=== PATIENT | female | born 1995 | race Caucasian/White ===

== ENCOUNTER 2017-07-28 11:50 | Emergency (ER) | payer BC, MEDICAID ==
[~2017-07-28] VITALS: Ht 167.6 cm; Wt 94.7 kg
[~2017-07-28 11:50] MED LIST: ALBU6.7H INH; AZIT250T74; FLUTI110I INH; GLUMETZA; IBUP800T23 PO; LEVO88TA21 PO; LEVORA; SYNT88TA PO; nebulizer machine
[2017-07-28 11:52] VITALS: BP 133/61; PULSE 110; RESP 18; TEMP 98.7; O2SAT 100
[2017-07-28] MEDS ORDERED: AMOX875T PO (12:36)
--- NOTE | 2017-07-28 12:42 | PD ---
HPI Chief Complaint: ENT Complaint Time Seen by Provider: 11:58 Travel History International Travel<30 days: No Contact w/Intl Traveler<30days: No Traveled to known affect area: No History of Present Illness HPI Patient comes to the emergency department complaining of cold and flulike symptoms ongoing for 2 weeks. Patient complaining of dry nonproductive cough, sore throat, and developing left ear pain that started yesterday. Patient describes pain as a sharp stabbing pain that radiates from her ear to her throat. Pain is worse with swallowing. Patient denies anything making symptoms better. Denies , nausea, vomiting, abdominal pain, headache, chest pain, or shortness of breath. Patient denies any known drug allergies even though her chart says acetaminophen listed. Patient reports she has not needed an inhaler for asthma long time she only gets when she exercises. PFSH Past Medical History ADHD: Yes Asthma: Yes Bipolar Disorder: Yes Diminished Hearing: No Gastrointestinal Disorders: Yes (CONSTIPATION) Genitourinary: Yes (ISSUES WITH BLADDER EMPTYING PER MOM) Psychiatric: Yes (ODD) Respiratory: Yes (ASTHMA) Immunizations Current: Yes Migraines: Yes Thyroid Disease: Yes ?: Not LMP: YESTERDAY : 1 Para: 0 Miscarriage: 0 : 0 Social History Alcohol Use: No Tobacco Use: No Substance Use: No Allergies-Medications (Allergen,Severity, Reaction): Coded Allergies: acetaminophen (Unverified Allergy, Unknown, Patient denies, 07/28/17) Reported Meds & Prescriptions Reported Meds & Active Scripts Active Amoxicillin 875 Mg Tab 875 Mg PO BID 10 Days Ibuprofen 800 Mg Tab 800 Mg PO TID [levora] 120 Days One tab po daily x 3 weeks, then discard last 7 pills and start new pack Repeat x 3 packs then on fourth pack finish all pills Proventil Hfa (Albuterol Sulfate) 6.7 Gm Aero 2 Puff INH Q4HPRN * SHAKE WELL BEFORE USE * [nebulizer machine] Synthroid (Levothyroxine Sodium) 88 Mcg Tab 88 Mcg PO DAILY Reported Proventil Hfa (Albuterol Sulfate) 6.7 Gm Aero 0 INH UNKNOWN DOSE Zithromax (Azithromycin) 250 Mg Tab 250 Mg UNKNOWN DOSE Flovent Hfa (Fluticasone Propionate) 110 Mcg Aero 2 Puff INH BID [Glumetza] 500 Mg Levoxyl (Levothyroxine Sodium) 88 Mcg Tab 88 Mcg PO DAILY Review of Systems Except as stated in HPI: all other systems reviewed are Neg Physical Exam Narrative GENERAL: Well-developed, overly nourished, in no acute distress, and non-ill appearing. SKIN: Focused skin assessment warm and dry. HEAD: Atraumatic. Normocephalic. EYES: Pupils equal and round. EOMI. No scleral icterus. No injection or drainage. ENT: No nasal bleeding or discharge. Mucous membranes pink and moist. Left tympanic membrane erythematous. Right tympanic membrane pearly boyd. Posterior pharynx mildly erythematous with scant exudate. Uvula is midline. No tenderness to facial sinuses to palpation. NECK: Trachea midline. No cervical lymphadenopathy. Supple. No nuclear rigidity. CARDIOVASCULAR: Regular rate and rhythm. No murmur appreciated. RESPIRATORY: No accessory muscle use. No respiratory distress. Clear to auscultation. Breath sounds equal bilaterally. MUSCULOSKELETAL: No obvious deformities. No clubbing. No cyanosis. No edema. Full range of motion. NEUROLOGICAL: Awake and alert. No obvious cranial nerve deficits. Motor grossly within normal limits. Normal speech. PSYCHIATRIC: Appropriate mood and affect; insight and judgment normal. Data Data Last Documented VS Vital Signs Date Time Temp Pulse Resp B/P (MAP) Pulse Ox O2 Delivery O2 Flow Rate FiO2 07/28/17 11:52 98.7 110 18 133/61 (85) 100 Orders Orders Influenzae A/B Antigen (07/28/17 11:59) Group A Rapid Strep Screen (07/28/17 11:59) Strep Culture (Group A) (07/28/17 12:12) Ed Discharge Order (07/28/17 12:42) MDM Medical Decision Making Medical Screen Exam Complete: Yes Emergency Medical Condition: Yes Differential Diagnosis Influenza, strep pharyngitis, viral pharyngitis, otitis media, otitis externa, otalgia Narrative Course Patient looks great, non-ill appearing. The patient is tolerating fluids and is well hydrated. Appears simple otitis media. No clinical evidence by history or evaluation to suspect meningitis and/or sepsis, nor malignant OE or mastoiditis. I discussed with the patient, diagnosis, plan of care and to follow up with the patients primary physician within the next week. The patient was instructed to return if worsens in anyway, especially if increased pain, persistent fever, headache, neck pain or as needed. The patient agreed with plan. Patient in no obvious distress upon re-evaluation. All pertinent laboratory result(s) discussed with patient. Patient was asked if they wanted to speak to my attending, which the patient did not wish to do at this time. Any questions/ concerns in reference to patient diagnosis/condition discussed and clarified prior to patient's discharge. Reinforced sheer importance of close follow up with patient's primary physician or primary care clinic. Instructed patient to return to ED immediately, if symptoms return/worsen. Patient showed understanding of above instructions. Further instructions and recommendations were detailed in discharge paperwork. Patient ambulated without difficulty out of ED at discharge. Diagnosis Primary Impression: Otitis media Qualified Codes: H66.90 - Otitis media, unspecified, unspecified ear Referrals: [facility] Patient Instructions: Ear Infection (ED), General Instructions Additional Instructions: Follow-up with your primary care physician or ENT in 3-5 days for reevaluation. Take all medication as prescribed. Use [id number] Tylenol and ibuprofen as needed for pain and fever control. Follow instructions on the packaging. Drink plenty of non-caffeinated nonalcoholic fluids. Gargle with warm salt water gargle for symptomatic relief. Return to the emergency department if symptoms get worse. Med/Other Pt SpecificInfo: Prescription(s) given Scripts Amoxicillin (Amoxicillin) 875 Mg Tab 875 MG PO BID for Infection for 10 Days, #20 TAB 0 Refills Prov: Flaco Agrawal MD 07/28/17 Disposition: 01 DISCHARGE HOME Condition: Stable Sean Guillory Jul 28, 2017 12:42
== END 2017-07-28 12:45 | disposition home or self-care (01) ==
LOC: PHEFT 11:50
DX: H66.92 Otitis media, unspecified, left ear (principal); R05 Cough; R07.0 Pain in throat; J45.909 Unspecified asthma, uncomplicated; E07.9 Disorder of thyroid, unspecified; Z86.59 Personal history of other mental and behavioral disorders; Z87.19 Personal history of other diseases of the digestive system; Z87.448 Personal history of other diseases of urinary system; Z86.69 Personal history of other diseases of the nervous system and sense organs
CPT/HCPCS: 87081; 87804; 87880; 99283